=== PATIENT | female | born 1980 | race Caucasian/White ===

== ENCOUNTER → 2021-03-22 | Outpatient (CLI) | payer OTHER ==
[~2021-03-22] MED LIST: FERR325 PO; LEVSOD88 PO; OMEP20ER PO; OXYACE5T PO
== END ==
LOC: LAB SHORT 17:54 → LAB 17:54
DX: J01.90 Acute sinusitis, unspecified (principal)
CPT/HCPCS: 87070; 87077; 87147; 87186

== ENCOUNTER 2022-07-20 10:27 | Emergency (ER) | payer OTHER ==
[~2022-07-20] VITALS: Ht 160 cm; Wt 69.8 kg
[~2022-07-20 10:27] MED LIST changes: +AMITIZA PO; +ONDA4ODT MM; +PAXLOVID 150-11 EACH PO; +TRANSDERM-SCOP1 EA10 TD; +Ventolin/Prove6.7 GM INH
[2022-07-20 11:13] LABS: BASOPHILS ABSOLUTE AUTO 0.04 K/mm3 (0.00-0.23); BASOPHILS PERCENT AUTO 1 % (0-2); EOSINOPHILS PERCENT AUTO 3 % (0-6); Hematocrit 39.2 % (33.0-51.0); Hemoglobin 13.5 g/dL (11.5-16.0); IMMATURE GRAN ABSOLUTE AUTO 0.01 K/mm3 (0.00-0.10); IMMATURE GRAN PERCENT AUTO 0 % (0-1); LYMPHOCYTES ABSOLUTE AUTO 1.69 K/mm3 (0.84-5.20); LYMPHOCYTES PERCENT AUTO 28 % (21-46); MONOCYTES ABSOLUTE AUTO 0.37 K/mm3 (0.16-1.47); MONOCYTES PERCENT AUTO 6 % (4-13); Mean Corpuscular HGB 30.5 pg (26.0-34.0); Mean Corpuscular HGB Conc 34.4 g/dL (31.5-36.5); Mean Corpuscular Volume 89 fL (80-100); Mean Platelet Volume 9.2 fL (9.1-12.4); NEUTROPHILS ABSOLUTE AUTO 3.78 K/mm3 (1.96-9.15); NEUTROPHILS PERCENT AUTO 62 % (41-73); Platelet Count 245 K/mm3 (150-400); RDW Coefficient Variation 12.1 % (11.7-14.2); RDW Standard Deviation 39.8 fL (35.1-46.3); Red Blood Cell Count 4.42 M/mm3 (3.80-5.20); White Blood Cell Count 6.09 K/mm3 (4.00-11.30)
[2022-07-20 11:33] LABS: Bilirubin, Direct <0.1 mg/dL (0.0-0.3); Magnesium, Blood 2.3 mg/dL (1.6-2.4)
[2022-07-20 11:35] LABS: Albumin, Blood 3.8 g/dL (3.4-5.0); Albumin/Globulin Ratio 0.9 (0.8-1.8); Bilirubin, Total 0.4 mg/dL (0.1-1.0); Bun/Creatinine Ratio 21.8 (12.0-20.0); Calcium, Blood 8.9 mg/dL (8.5-10.1); Creatinine, Blood 0.69 mg/dL (0.40-1.00); Globulin, Blood 4.1 g/dL (2.2-4.0); Total Protein, Blood 7.9 g/dL (6.4-8.2)
[2022-07-20 12:57] LABS: Source, Urine Voided
[2022-07-20 13:03] LABS: Appearance, Urine Clear (Clear); Bilirubin, Urine Neg (Neg); Blood, Urine Neg (Neg); Glucose Qualitative, Urine Neg (Neg); Ketones, Urine Neg (Neg); Leukocyte Esterase, Urine Neg (Neg); Nitrite, Urine Neg (Neg); Protein, Urine Neg (Neg); Specific Gravity, Urine 1.015 (1.003-1.022); Urobilinogen, Urine NORM (Normal)
[2022-07-20 13:10] LABS: Color, Urine Pale Yellow (P-Yellow)
[2022-07-20] MEDS ORDERED: PROM25 PO (13:31)
== END 2022-07-20 13:46 | disposition home or self-care (01) ==
LOC: ER 10:27
PROVIDERS: Student in an Organized Health Care Education/Training Program
DX: R10.11 Right upper quadrant pain (principal); F17.290 Nicotine dependence, other tobacco product, uncomplicated; Z88.0 Allergy status to penicillin; Z79.899 Other long term (current) drug therapy; Z87.11 Personal history of peptic ulcer disease
CPT/HCPCS: 36415; 76705; 80053; 81003; 82248; 83690; 83735; 85025; 96374; 96375; 99284-25; A9270; J1885; J2405; J7030

== ENCOUNTER 2023-01-05 13:17 | Emergency (ER) | payer OTHER ==
[~2023-01-05] VITALS: Ht 160 cm; Wt 72.6 kg
[~2023-01-05 13:17] MED LIST changes: +PROM25 PO
[2023-01-05 13:55] LABS: BASOPHILS ABSOLUTE AUTO 0.03 K/mm3 (0.00-0.23); BASOPHILS PERCENT AUTO 0 % (0-2); EOSINOPHILS ABSOLUTE AUTO 0.01 K/mm3 (0.00-0.68); EOSINOPHILS PERCENT AUTO 0 % (0-6); Hematocrit 40.2 % (33.0-51.0); IMMATURE GRAN ABSOLUTE AUTO 0.04 K/mm3 (0.00-0.10); IMMATURE GRAN PERCENT AUTO 0 % (0-1); LYMPHOCYTES ABSOLUTE AUTO 0.96 K/mm3 (0.84-5.20); LYMPHOCYTES PERCENT AUTO 8 % (21-46); MONOCYTES ABSOLUTE AUTO 0.27 K/mm3 (0.16-1.47); MONOCYTES PERCENT AUTO 2 % (4-13); Mean Corpuscular HGB 30.7 pg (26.0-34.0); Mean Corpuscular HGB Conc 34.8 g/dL (31.5-36.5); Mean Corpuscular Volume 88 fL (80-100); Mean Platelet Volume 9.3 fL (9.1-12.4); NEUTROPHILS ABSOLUTE AUTO 10.56 K/mm3 (1.96-9.15); NEUTROPHILS PERCENT AUTO 89 % (41-73); Platelet Count 292 K/mm3 (150-400); RDW Coefficient Variation 12.3 % (11.7-14.2); RDW Standard Deviation 39.7 fL (35.1-46.3); Red Blood Cell Count 4.56 M/mm3 (3.80-5.20); White Blood Cell Count 11.87 K/mm3 (4.00-11.30)
[2023-01-05 14:15] LABS: Albumin, Blood 3.5 g/dL (3.4-5.0); Albumin/Globulin Ratio 0.8 (0.8-1.8); Bilirubin, Total 0.3 mg/dL (0.1-1.0); Bun/Creatinine Ratio 19.9 (12.0-20.0); Creatinine, Blood 0.7 mg/dL (0.40-1.00); Globulin, Blood 4.3 g/dL (2.2-4.0); Potassium, Blood 4.2 mmol/L (3.5-5.5); Total Protein, Blood 7.8 g/dL (6.4-8.2)
[2023-01-05] MEDS ORDERED: Norco 5-325 Ta1 EACH PO (17:56)
[2023-01-05] MEDS ORDERED: Flagyl500 MG PO (17:56)
[2023-01-05] MEDS ORDERED: Cipro500 MG PO (17:56)
[2023-01-05] MEDS ORDERED: ONDA4ODT MM (17:56)
[2023-01-05 18:15] VITALS: BP 121/100
[2023-01-12] MEDS ORDERED: PANTOPRAZOLE SO40 M2 PO (23:07)
[2023-01-12] MEDS ORDERED: METR500 PO (23:08)
== END 2023-01-05 18:24 | disposition home or self-care (01) ==
LOC: ER 13:17
PROVIDERS: Student in an Organized Health Care Education/Training Program
DX: K57.32 Diverticulitis of large intestine without perforation or abscess without bleeding (principal); Z88.0 Allergy status to penicillin; Z91.048 Other nonmedicinal substance allergy status; Z88.8 Allergy status to other drugs, medicaments and biological substances; Z87.891 Personal history of nicotine dependence
CPT/HCPCS: 74177; 80053; 83690; 85025; 93005; 93010; 96361; 96374; 96375; 99284-25; A9270; J1170; J1885; J2405; J7030; Q9967

== ENCOUNTER 2023-03-13 07:49 | Inpatient (IN) | payer OTHER ==
--- NOTE | 2023-03-12 14:39 | NUR ---
PT IS SLOW TO WAKE UP FROM ANESTHESIA. FOR HER PREVIOUS HYSTERECTOMY, SHE SPENT 6 HOURS IN THE PACU. PT ALSO EXPERIENCES LOW BP AND LOW BLOOD SUGAR AFTER ANESTHESIA. I TALKED TO PT AND DR FARIAS ABOUT THIS. DR FARIAS SPOKE WITH PT IN PRE-OP EVALUATION TO REASSURE HER, SINCE SHE IS ANXIOUS. DR FARIAS SAID IF HER BLOOD SUGAR NEEDS TO BE CHECKED, WE CAN PUT A VERBAL ORDER IN UNDER HER. DR FARIAS ALSO ASKED THAT WE KEEP THE FAMILY UPDATED ON HER STATUS THEY CANNOT BE IN PACU.
[~2023-03-13] VITALS: Ht 160 cm; Wt 71.1 kg
[2023-03-13] VITALS (19 sets, daily range): BP systolic 95–119; BP diastolic 54–73
[~2023-03-13 07:49] MED LIST changes: +CEFU500T30 PO; +Cipro500 MG PO; +Flagyl500 MG PO; +METR500 PO; +Nicoderm Cq1 EAC1 TOP; +Norco 5-325 Ta1 EACH PO; +PANTOPRAZOLE SO40 M2 PO; +PROC5 PO; +VISBIOME 112.51 EACH PO
--- NOTE | 2023-03-13 08:46 | NUR ---
History, Chart, Medications and Allergies reviewed before start of procedure. Lungs clear T/O to Auscultation. Patient confirms NPO status and agrees with scheduled surgery. Pre-Op teaching done. Pt verbalizes understanding. Patient reports completing Chlorhexadine shower X2 prior to admission to hospital.
--- NOTE | 2023-03-13 15:30 | NUR ---
SHIFT SUMMARY/NOTE: POD 0 LAP COLECTOMY PATIENT ARRIVED TO THE UNIT FROM PACU TODAY. PATIENT IS A&OX4. VS ARE WNL AND IS ON RA. PATIENT REPORTS 5/10 PAIN AND WAS JUST GIVEN PO OXY PER EMAR. PATIENTS ABD HAS X4 LAP SITES WITH WOUND GLUE THAT ARE C/D/I. PATIENT PASSED GAS ALREADY WITH PACU. SHE DENIES NAUSEA OR VOMITING AT THIS TIME. VANN IS DRAINING PER GRAVITY WITH YELLOW URINE OUTPUT. SHE IS TOLERATING SMALL AMOUNTS OF PO INTAKE. SHE IS LAYING IN BED WITH CALL LIGHT IN REACH. AT BEDSIDE.
[2023-03-14] VITALS (7 sets, daily range): BP systolic 87–125; BP diastolic 57–71
--- NOTE | 2023-03-14 04:30 | NUR ---
SHIFT SUMMARY POD1 SIGMOID COLECTOMY. LAP SITES ARE C/D/I. VSS, SOFT BP'S NOTED T/O THE NIGHT. PT REMAINS ASYMPTOMATIC. PT HAS NOT BEEN ABLE TO GET OOB D/T PAIN AND GROGGINESS FROM SURGERY. PT HAS SLEPT ON AND OFF, MEDICATED WITH PO AND IV MEDICATION. PT ATEMPTED TO USE ONLY ORAL MEDICATION BUT WAS UNABLE D/T BREAKTHROUGH PAIN. PREVENTATIVELY MEDICATED WITH ZOFRAN D/T EMESIS ON PREVIOUS SHIFT. ABD BINDER PLACED FOR SUPPORT AND COMFORT, PT REPORTS GREAT RELIEF FROM THIS. VANN REMAINS IN PLACE, DRAINING DARK YELLOW URINE. IV FLUIDS INFUSING T/O THE NIGHT. TOLLERATED CLEAR LIQUID, SIPS, W/O N/V. NO ACUTE EVENTS NOTED. PLAN TO ADVANCE DIET TODAY AND AMBULATE.
[2023-03-14 04:39] LABS: Hematocrit 35.2 % (33.0-51.0); Mean Corpuscular HGB 31.2 pg (26.0-34.0); Mean Corpuscular HGB Conc 34.1 g/dL (31.5-36.5); Mean Corpuscular Volume 91 fL (80-100); Mean Platelet Volume 9.8 fL (9.1-12.4); Platelet Count 216 K/mm3 (150-400); RDW Coefficient Variation 12.6 % (11.7-14.2); RDW Standard Deviation 42.5 fL (35.1-46.3); Red Blood Cell Count 3.85 M/mm3 (3.80-5.20); White Blood Cell Count 10.69 K/mm3 (4.00-11.30)
[2023-03-14 05:22] LABS: Bun/Creatinine Ratio 18.7 (12.0-20.0); Calcium, Blood 8.3 mg/dL (8.5-10.1); Creatinine, Blood 0.64 mg/dL (0.40-1.00); Magnesium, Blood 2.1 mg/dL (1.6-2.4); Potassium, Blood 4.3 mmol/L (3.5-5.5)
--- NOTE | 2023-03-14 19:16 | NUR ---
SHIFT SUMMARY PT POD 1 LAP JOHN COLECTOMY. LAP SITES X'S 4 DRY INTACT. PT REPORTS FLATUS W/SMALL AMT SEDEMENT. TOLERATING REGULAR DIET NO VOMITING. MEDICATED WITH ZOFRAN X'S 2 FOLLOWING PAIN MEDICATION ADMINISTRATION. PAIN WELL MANAGED WITH 10MG ROXICODONE. PT AMBULATING IN ROOM, ENCOURAGE AMBULATION IN HALLWAY TO PROMOTE GASTRIC MOTILITY. PLAN FOR POS DC TOMORROW.
[2023-03-15 04:37] VITALS: BP 101/54
--- NOTE | 2023-03-15 06:05 | NUR ---
SHIFT SUMMARY PT IS POD#2 FOR A ROBOTIC SIGMOID COLECTOMY. PT HAS BEEN PAINFUL AND NAUSEOUS THROUGHOUT THE SHIFT AND HAS BEEN MEDICATED PER THE EMAR. PT WAS ABLE TO WALK IN THE HALLWAY WITH HER LAST NIGHT, BUT AFTER RETURNING TO HER ROOM FROM HER WALK, HER PAIN INCREASED SIGNIFICANTLY. PT'S RIGHT SIDE ABDOMINAL LAP SITE IS BRUISED AND IS CONCERNING FOR THE PT. SHE IS ALSO FEELING FRUSTRATED BECAUSE SHE FEELS SHE SHOULD BE FURTHER ALONG IN HER HEALING BY NOW. VITAL SIGNS HAVE BEEN STABLE. BED IS IN LOWEST POSITION, CALL LIGHT IS WITHIN REACH.
[2023-03-15 07:45] VITALS: BP 114/72
[2023-03-15 14:59] VITALS: BP 122/73
[2023-03-15 19:37] VITALS: BP 123/81
--- NOTE | 2023-03-15 19:39 | NUR ---
SHIFT SUMMARY PT POD 2 LAP JOHN COLECTOMY. LAP SITES X'S 4 D/I, BRUISING TO LLQ UNCHANGED FROM PREV ASSESSMENT. TOLERATING REGULAR DIET WITH NO N/V. PAIN WELL MANAGED WITH NORCO PER EMAR. AMBULATING IN HALLWAYS INDEPENDENTLY.
[2023-03-16 04:35] VITALS: BP 100/62
--- NOTE | 2023-03-16 06:54 | NUR ---
SHIFT SUMMARY PT IS POD#3 FOR A ROBOTIC SIGMOID COLECTOMY. PT HAS BEEN DOING BETTER THIS SHIFT, REQUIRING ONLY PO PAIN MEDICATIONS AND ONE INSTANCE OF IV ANTI-NAUSEA MEDICATION. PT IS INDEPENDENT IN THE ROOM AND HAS BEEN AMBULATING TO THE BATHROOM WITHOUT ANY ISSUES. BED IS IN THE LOWEST POSITION, CALL LIGHT IS WITHIN REACH.
[2023-03-16 07:20] VITALS: BP 99/64
[2023-03-16] MEDS ORDERED: HYDR1TAB94 PO (12:10)
[2023-03-16] MEDS ORDERED: ONDA4ODT MM (12:11)
[2023-03-16 12:17] VITALS: BP 106/71
--- NOTE | 2023-03-16 13:51 | NUR ---
DISCHARGE PT PROVIDED WITH WRITTEN AND VERBAL DISCHARGE INSTRUCTIONS; SHE REPORTED UNDERSTANDING. PT ABLE TO PASS FLATUS, TOLERATING PO AND PAIN MANAGED AT TIME OF DISCHARGE. VSS. PT AMBULATED OUT WITHOUT ASSISTANCE.
== END 2023-03-16 12:40 | disposition home or self-care (01) | DRG 331 ==
LOC: SURS 07:49 → PRE IP 09:30 → SURS 14:44
PROVIDERS: ADMIT Surgery
PROC: 8E0W4CZ Robotic Assisted Procedure of Trunk Region, Percutaneous Endoscopic Approach (ICD-10-PCS; 2023-03-13)
PROC: 0DBN4ZZ Excision of Sigmoid Colon, Percutaneous Endoscopic Approach (ICD-10-PCS; principal; 2023-03-13 09:30)
DX: K57.20 Diverticulitis of large intestine with perforation and abscess without bleeding (principal); K21.9 Gastro-esophageal reflux disease without esophagitis; G43.909 Migraine, unspecified, not intractable, without status migrainosus; E66.3 Overweight; F17.210 Nicotine dependence, cigarettes, uncomplicated; F12.90 Cannabis use, unspecified, uncomplicated; Z90.49 Acquired absence of other specified parts of digestive tract; Z98.890 Other specified postprocedural states; Z90.710 Acquired absence of both cervix and uterus; Z90.722 Acquired absence of ovaries, bilateral; Z90.79 Acquired absence of other genital organ(s); Z79.899 Other long term (current) drug therapy; Z88.0 Allergy status to penicillin; Z88.8 Allergy status to other drugs, medicaments and biological substances; Z91.030 Bee allergy status; Z91.018 Allergy to other foods; Z91.048 Other nonmedicinal substance allergy status; Z68.28 Body mass index [BMI] 28.0-28.9, adult
CPT/HCPCS: 36415; 80048; 82947; 83735; 85027; 94760; A9270; J0744; J0780; J1100; J1170; J1650; J1790; J1885; J2250; J2405; J2704; J2765; J3010; J7120

== ENCOUNTER → 2023-04-05 | Outpatient (CLI) | payer OTHER ==
[~2023-04-05] MED LIST changes: +HYDR1TAB94 PO
[2023-04-05 12:03] LABS: Adenovirus F 40/41 Not Detected (NOT DETECT); Astrovirus Not Detected (NOT DETECT); Campylobacter Sp Not Detected (NOT DETECT); Cryptosporidium Not Detected (NOT DETECT); Cyclospora Cayetanensis Not Detected (NOT DETECT); E. Coli O157 Not Detected (NOT DETECT); Entamoeba Histolytica Not Detected (NOT DETECT); Enteroaggregative E. coli-EAEC Not Detected (NOT DETECT); Enteropathogenic E. coli-EPEC Not Detected (NOT DETECT); Enterotoxigenic E. coli-ETEC Not Detected (NOT DETECT); Giardia Lamblia Not Detected (NOT DETECT); Norovirus GI/GII Not Detected (NOT DETECT); Plesiomonas Shigelloides Not Detected (NOT DETECT); Rotavirus A Not Detected (NOT DETECT); Salmonella Sp Not Detected (NOT DETECT); Sapovirus Not Detected (NOT DETECT); Shiga Toxin-prod E. coli-STEC Not Detected (NOT DETECT); Shigella/Enteroin E. coli-EIEC Not Detected (NOT DETECT); Vibrio Cholerae Not Detected (NOT DETECT); Vibrio Sp Not Detected (NOT DETECT); Yersinia Enterocolitica Not Detected (NOT DETECT)
== END | disposition home or self-care (01) ==
LOC: LAB 09:17 → LAB SHORT 09:17
PROVIDERS: Surgery
DX: R19.7 Diarrhea, unspecified (principal); Z98.890 Other specified postprocedural states
CPT/HCPCS: 87507

== ENCOUNTER → 2023-10-17 | Outpatient (CLI) | payer OTHER ==
[2023-10-17 16:34] LABS: Source, Urine Clean Catch
[2023-10-17 16:52] LABS: Bacteria Not Seen /hpf; Red Blood Cells, Urine Not Seen /hpf (0-2); Squamous Epithelial Cells Few /hpf (Few)
== END | disposition home or self-care (01) ==
LOC: LAB SHORT 16:32
PROVIDERS: Internal Medicine
DX: R10.9 Unspecified abdominal pain (principal)
CPT/HCPCS: 81015; 87086

== ENCOUNTER → 2024-04-16 | Outpatient (CLI) | payer OTHER ==
[2024-04-16 14:09] LABS: BASOPHILS ABSOLUTE AUTO 0.04 K/mm3 (0.00-0.23); BASOPHILS PERCENT AUTO 1 % (0-2); EOSINOPHILS ABSOLUTE AUTO 0.24 K/mm3 (0.00-0.68); EOSINOPHILS PERCENT AUTO 3 % (0-6); Hematocrit 42.1 % (33.0-51.0); Hemoglobin 14.2 g/dL (11.5-16.0); IMMATURE GRAN ABSOLUTE AUTO 0.02 K/mm3 (0.00-0.10); IMMATURE GRAN PERCENT AUTO 0 % (0-1); LYMPHOCYTES PERCENT AUTO 23 % (21-46); MONOCYTES ABSOLUTE AUTO 0.57 K/mm3 (0.16-1.47); MONOCYTES PERCENT AUTO 8 % (4-13); Mean Corpuscular HGB 30.5 pg (26.0-34.0); Mean Corpuscular HGB Conc 33.7 g/dL (31.5-36.5); Mean Corpuscular Volume 90 fL (80-100); Mean Platelet Volume 9.2 fL (9.1-12.4); NEUTROPHILS ABSOLUTE AUTO 4.84 K/mm3 (1.96-9.15); NEUTROPHILS PERCENT AUTO 65 % (41-73); Platelet Count 270 K/mm3 (150-400); RDW Coefficient Variation 12.8 % (11.7-14.2); RDW Standard Deviation 41.6 fL (35.1-46.3); Red Blood Cell Count 4.66 M/mm3 (3.80-5.20); White Blood Cell Count 7.41 K/mm3 (4.00-11.30)
[2024-04-16 14:23] LABS: Albumin, Blood 3.9 g/dL (3.4-5.0); Albumin/Globulin Ratio 0.9 (0.8-1.8); Bilirubin, Total 0.4 mg/dL (0.1-1.0); Bun/Creatinine Ratio 21.1 (12.0-20.0); Calcium, Blood 8.8 mg/dL (8.5-10.1); Creatinine, Blood 0.9 mg/dL (0.40-1.00); Globulin, Blood 4.4 g/dL (2.2-4.0); Potassium, Blood 4.2 mmol/L (3.5-5.5); Total Protein, Blood 8.3 g/dL (6.4-8.2)
== END ==
LOC: LAB 14:00 → LAB SHORT 14:00
DX: R10.9 Unspecified abdominal pain (principal)
CPT/HCPCS: 80053; 83690; 85025

== ENCOUNTER → 2024-04-16 | Outpatient (CLI) | payer OTHER | LOC: LAB SHORT 14:48 → LAB 14:48 | DX: R10.9 Unspecified abdominal pain (principal) | CPT/HCPCS: 87086 ==

== ENCOUNTER → 2024-08-17 | Outpatient (CLI) | payer OTHER ==
[2024-08-21 08:21] LABS: HSV 1 SUBTYPE BY PCR Detected; HSV 2 SUBTYPE BY PCR Not Detected; HSV SUBTYPE SOURCE Vesicle
== END | disposition home or self-care (01) ==
LOC: LAB 13:12 → LAB SHORT 13:12
PROVIDERS: Nurse Practitioner
DX: B00.1 Herpesviral vesicular dermatitis (principal)
CPT/HCPCS: 87529